=== PATIENT | male | born 1965 | race African-American/Black ===

== ENCOUNTER 2018-04-20 14:37 | Observation (INO) | payer BC ==
[2018-04-20] MEDS ORDERED: NORMAL SALINE 1000 ML 1,000 ML IV ONE ×3 (15:19→20:35)
--- NOTE | 2018-04-20 15:22 | ER Document Report ---
ED General - General Chief Complaint: Pain All Over Stated Complaint: LEG PAIN Time Seen by Provider: 04/20/18 15:04 Mode of Arrival: Ambulatory Information source: Patient Notes: Patient states that he had been living with his sister and that they had an argument and a falling out. Patient states that he moved into a hotel 5 days ago and has not been eating and has only been drinking alcohol for the past 5 days. Patient states that normally he does not drink alcohol heavily. Patient complains of generalized body aches, headache, leg pain with nausea and vomiting 2 episodes. Patient denies any falls or head injury. Patient denies any suicidal or homicidal ideation. Patient tearful during the telling of events. Patient states that he is emotionally hurt by the interaction with his sister. TRAVEL OUTSIDE OF THE [place] IN LAST 30 DAYS: No - HPI Onset: Other - 5 days Onset/Duration: Gradual Quality of pain: Achy Pain Level: 3 Associated symptoms: Headache, Nausea, Vomiting, Other - Generalized body aches , leg pain. denies: Chest pain, Nonproductive cough, Productive cough, Fever Exacerbated by: Denies Relieved by: Denies Similar symptoms previously: No Recently seen / treated by doctor: No - Related Data Allergies/Adverse Reactions: No Known Allergies Allergy (Verified 04/20/18 14:39) Past Medical History - General Information source: Patient - Social History Smoking Status: Current Every Day Smoker Smoking Education Provided: Yes Frequency of alcohol use: Heavy Drug Abuse: None Occupation: [employer] Lives with: Other - hotel Family History: None - Past Medical History Cardiac Medical History: Reports: Hx Hypertension Surgical Hx: Negative - Immunizations Immunizations up to date: Yes Hx Diphtheria, Pertussis, Tetanus Vaccination: Yes - unknown Review of Systems - Review of Systems Constitutional: No symptoms reported. denies: Fever, Recent illness EENT: No symptoms reported Cardiovascular: No symptoms reported. denies: Chest pain Respiratory: No symptoms reported. denies: Cough, Short of breath Gastrointestinal: Abdominal pain, Nausea, Vomiting Genitourinary: No symptoms reported Male Genitourinary: No symptoms reported Musculoskeletal: Other - Generalized body pain Skin: No symptoms reported Hematologic/Lymphatic: No symptoms reported Neurological/Psychological: Depression, Headaches. denies: Homicidal ideation, Lost consciousness, Suicidal ideation Physical Exam - Vital signs Vitals: Temp Pulse Resp BP Pulse Ox 98.6 F 139 H 22 H 100/58 L 96 04/20/18 14:44 04/20/18 14:44 04/20/18 14:44 04/20/18 14:44 04/20/18 14:44 - General General appearance: Appears well, Alert In distress: None - HEENT Head: Normocephalic, Atraumatic Eyes: Normal Conjunctiva: Normal Nasal: Normal Mouth/Lips: Normal Mucous membranes: Normal Pharynx: Normal Neck: Normal, Supple. No: Lymphadenopathy - Respiratory Respiratory status: No respiratory distress Chest status: Nontender Breath sounds: Normal. No: Rales, Rhonchi, Stridor, Wheezing Chest palpation: Normal - Cardiovascular Rhythm: Tachycardia Heart sounds: S1 appreciated, S2 appreciated Murmur: No - Abdominal Inspection: Normal Distension: No distension Bowel sounds: Normal Tenderness: Tender - Generalized tenderness. No: Guarding - Back Back: Normal, Nontender. No: CVA tenderness, Vertebra tenderness - Extremities General upper extremity: Normal inspection, Tender - Diffuse tenderness, no focal area tenderness, Normal ROM General lower extremity: Normal inspection, Tender - Diffuse tenderness, no focal area tenderness, Normal ROM Knee: Tender - bilat knee tenderness. Normal skin color and temperature overlying joints., Patellar tendon intact. No: Deformity, Dislocation, Instability, Joint effusion, Laxity with valgus stress, Laxity with varus stress , Unable to bear weight Calf: Normal, Nontender Ankle: Normal, Nontender Foot: Normal, Nontender - Neurological Neuro grossly intact: Yes Cognition: Normal Leigh Coma Scale Eye Opening: Spontaneous Leigh Coma Scale Verbal: Oriented [place] Coma Scale Motor: Obeys Commands [place] Coma Scale Total: 15 - Psychological Associated symptoms: Depressed, Tearful - Skin Skin Temperature: Warm Skin Moisture: Dry Skin Color: Normal Course - Re-evaluation Re-evalutation: 04/20/18 17:[address] jeronimo regarding patient presentation and diagnostic evaluation. Recommends adding on alcohol, CK, and VBG testing 04/20/18 18:39 Patient reports that generalized body aches have improved and headache pain is improved. Patient complains of continued lower abdominal pain at this time. Patient heart rate 100-110s on monitor. 04/20/18 18:41 Dr. Roberts gave patient outpatient resources information for mental health as well as detox. Patient does not meet IVC criteria. - Vital Signs Vital signs: Temp Pulse Resp BP Pulse Ox 98.6 F 139 H 18 113/61 100 04/20/18 14:44 04/20/18 14:44 04/20/18 17:00 04/20/18 17:00 04/20/18 17:00 - Laboratory Result Diagrams: 04/20/18 15:35 04/20/18 15:35 Laboratory results interpreted by me: 04/20/18 04/20/18 04/20/18 15:35 15:35 15:35 RBC 3.93 L MCV 102 H MCH 34.8 H VBG pH VBG pCO2 VBG HCO3 Potassium 5.3 H Carbon Dioxide 11 L Anion Gap 32 H BUN 34 H Creatinine 1.82 H Est GFR ( Amer) 48 L Est GFR (Non-Af Amer) 39 L Glucose 44 L Direct Bilirubin 0.8 H AST 235 H ALT 75 H Creatine Kinase 389 H Urine Protein Urine Ketones Urine Blood Urine Urobilinogen 04/20/18 04/20/18 17:42 18:12 RBC MCV MCH VBG pH 7.25 L VBG pCO2 33.0 L VBG HCO3 14.2 L Potassium Carbon Dioxide Anion Gap BUN Creatinine Est GFR ( Amer) Est GFR (Non-Af Amer) Glucose Direct Bilirubin AST ALT Creatine Kinase Urine Protein 30 H Urine Ketones 20 H Urine Blood SMALL H Urine Urobilinogen 2.0 H Discharge - Discharge Clinical Impression: Stress due to family tension, Metabolic acidosis Abdominal pain Qualifiers: Abdominal location: unspecified location Qualified Code(s): R10.9 - Unspecified abdominal pain Alcohol intoxication Qualifiers: Complication of substance-induced condition: with unspecified complication Qualified Code(s): F10.929 - Alcohol use, unspecified with intoxication, unspecified Instructions: Abdominal Pain ([facility]), Depression ([facility]), Acute Alcohol Intoxication ([facility]), Numbness or Paresthesia ([facility]) Additional Instructions: Return immediately for any new or worsening symptoms Followup with your primary care provider, call tomorrow to make a followup appointment Avoid drinking any alcohol Follow-up with mental health provider Prescriptions: Omeprazole Magnesium [Prilosec Otc] 20 mg PO DAILY #15 tablet. Sucralfate [Carafate 1 gm Tablet] 1 gm PO ACHS #40 tablet Forms: Smoking Cessation Education Referrals: GRAYSON ANGEL MD [Primary Care Provider] - Follow up as needed [facility] [Provider Group] - Follow up as needed
[2018-04-20] MEDS ORDERED: KETOROLAC TROMETHAMINE INJ/PF 30 MG/1 ML SDV IV ONE (15:50)
[2018-04-20 16:06] LABS: ABSOLUTE BASOPHILS # (AUTO) 0.1 10^3/uL (0.0-0.2); ABSOLUTE LYMPHOCYTES (AUTO) 1.4 10^3/uL (0.5-4.7); ABSOLUTE MONOCYTES (AUTO) 0.6 10^3/uL (0.1-1.4); ABSOLUTE NEUT (AUTO) 3.3 10^3/uL (1.7-8.2); BASOPHILS % (AUTO) 1.1 % (0-2); EOSINOPHILS % (AUTO) 0.8 % (0-6); HEMOGLOBIN 13.7 g/dL (13.5-17.0); LYMPHOCYTES % (AUTO) 25.7 % (13-45); MEAN CORPUSCULAR HEMOGLOBIN 34.8 pg (27.0-33.4); MEAN CORPUSCULAR HGB CONC 34.2 g/dL (32.0-36.0); MEAN CORPUSCULAR VOLUME 102 fl (80-97); MONOCYTES % (AUTO) 10.8 % (3-13); PLATELET COUNT 162 10^3/uL (150-450); RED BLOOD COUNT 3.93 10^6/uL (4.35-5.55); RED CELL DISTRIBUTION WIDTH 13.9 % (11.5-14.0); SEGMENTED NEUTROPHILS % (AUTO) 61.6 % (42-78); TOTAL CELLS COUNTED % (AUTO) 100 %; WHITE BLOOD COUNT 5.4 10^3/uL (4.0-10.5)
[2018-04-20 16:25] LABS: ALANINE AMINOTRANSFERASE 75 U/L (21-72); ALBUMIN 4.8 g/dL (3.5-5.0); ALKALINE PHOSPHATASE 86 U/L (38-126); ASPARTATE AMINO TRANSFERASE 235 U/L (17-59); BILIRUBIN,DIRECT 0.8 mg/dL (0.0-0.4); BLOOD UREA NITROGEN 34 mg/dL (7-20); CALCIUM 9.2 mg/dL (8.4-10.2); GLUCOSE 44 mg/dL (75-110); LIPASE 158.6 U/L (23-300); POTASSIUM 5.3 mmol/L (3.6-5.0); TOTAL PROTEIN 7.8 g/dL (6.3-8.2)
[2018-04-20 16:30] LABS: CARBON DIOXIDE 11 mmol/L (22-30); CHLORIDE 100 mmol/L (98-107); SODIUM 142.5 mmol/L (137-145)
[2018-04-20 16:34] LABS: ANION GAP 32 (5-19)
[2018-04-20] MEDS ORDERED: NORMAL SALINE 1000 ML 1,000 ML IV PRN (17:12)
[2018-04-20 17:54] LABS: ALCOHOL 287 mg/dL (NONE DETECTED); CREATINE KINASE 389 U/L (55-170)
[2018-04-20 18:19] LABS: APPEARANCE,URINE CLEAR; BILIRUBIN,URINE NEGATIVE (NEGATIVE); COLOR,URINE YELLOW; GLUCOSE, URINE NEGATIVE (NEGATIVE); KETONES,URINE 20 mg/dL (NEGATIVE); LEUKOCYTE ESTERASE,URINE NEGATIVE (NEGATIVE); NITRITE,URINE NEGATIVE (NEGATIVE); PROTEIN,URINE 30 mg/dL (NEGATIVE); URINE SPECIFIC GRAVITY 1.015
[2018-04-20 18:47] LABS: VENOUS BLOOD BASE EXCESS -11.8 mmol/L; VENOUS BLOOD HCO3 14.2 mmol/L (20-32); VENOUS BLOOD PH 7.25 (7.30-7.42)
--- NOTE | 2018-04-20 19:25 | RADIOLOGY REPORT (SQ) ---
EXAM DESCRIPTION: CT ABD/PELVIS NO ORAL OR IV COMPLETED DATE/TIME: 04/20/2018 7:05 pm REASON FOR STUDY: lower abd pain COMPARISON: None. TECHNIQUE: CT scan of the abdomen and pelvis performed without intravenous or oral contrast. Images reviewed with lung, soft tissue, and bone windows. Reconstructed coronal and sagittal MPR images revi ewed. All images stored on PACS. All CT scanners at this facility use dose modulation, iterative reconstruction, and/or weight based d osing when appropriate to reduce radiation dose to as low as reasonably achievable (ALARA). [facility]: Dose Right [facility]: CareDose [facility]: Dose Right [facility]: Teradose 4D [facility]: Smart [employer] RADIATION DOSE: CT Rad equipment meets quality standard of care and radiation dose reduction techniq ues were employed. CTDIvol: 5.5 mGy. DLP: 298 mGy-cm.mGy. LIMITATIONS: None. FINDINGS: LOWER CHEST: No consolidation or pleural effusion. NON-CONTRASTED LIVER, SPLEEN, ADRENALS: Evaluation limited by lack of IV contrast. No identified sign ificant masses. There is diffuse decreased attenuation of the liver, most consistent with fatty infi ltration. PANCREAS: No peripancreatic inflammatory changes. GALLBLADDER: There is cholelithiasis. RIGHT KIDNEY AND URETER: Assessment for masses limited by lack of IV contrast. No significant calci fications. No hydronephrosis or hydroureter. LEFT KIDNEY AND URETER: Assessment for masses limited by lack of IV contrast. No significant calcif ications. No hydronephrosis or hydroureter. AORTA AND RETROPERITONEUM: Atherosclerotic calcifications at the abdominal aorta and its branches. N o abdominal aortic aneurysm. No retroperitoneal masses or hemorrhage. BOWEL AND PERITONEAL CAVITY: No dilated bowel loops to suggest obstruction. No focal inflammatory ch anges. No free fluid or free air. APPENDIX: Normal. PELVIS, BLADDER, AND ABDOMINAL WALL:The urinary bladder is partially distended. No pelvic mass. No free fluid. BONES: Mild multilevel degenerative changes at the spine. IMPRESSION: 1. No urinary tract calculi or hydronephrosis. 2. Fatty infiltration of the liver. 3. Cholelithiasis. COMMENT: Quality ID # [id number]: Final reports with documentation of one or more dose reduction techniques (e.g., Automated exposure control, adjustment of the mA and/or kV according to patient size, use of iterative reconstruction technique) TECHNICAL DOCUMENTATION: JOB ID: [id number] 2010 [facility]- All Rights Reserved Reading location - IP/workstation name: [email or web address]
[2018-04-20 19:45] LABS: BLOOD UREA NITROGEN 28 mg/dL (7-20); CALCIUM 8.5 mg/dL (8.4-10.2); CHLORIDE 104 mmol/L (98-107); GLUCOSE 77 mg/dL (75-110); POTASSIUM 4.9 mmol/L (3.6-5.0)
[2018-04-20 19:51] LABS: CARBON DIOXIDE 18 mmol/L (22-30); SODIUM 142.4 mmol/L (137-145)
[2018-04-20 20:09] LABS: ANION GAP 20 (5-19)
[2018-04-20 20:36] LABS: ALANINE AMINOTRANSFERASE 68 U/L (21-72); ALBUMIN 4.1 g/dL (3.5-5.0); ALKALINE PHOSPHATASE 76 U/L (38-126); ASPARTATE AMINO TRANSFERASE 218 U/L (17-59); BILIRUBIN,DIRECT 0.6 mg/dL (0.0-0.4); BILIRUBIN,TOTAL 0.7 mg/dL (0.2-1.3); TOTAL PROTEIN 6.9 g/dL (6.3-8.2)
--- NOTE | 2018-04-20 22:08 | EKG REPORT ---
SEVERITY:- OTHERWISE NORMAL ECG - SINUS TACHYCARDIA : Confirmed by: Papito Merida 20-Apr-2018 22:07:28
[2018-04-20 22:48] LABS: VENOUS BLOOD BASE EXCESS -9.5 mmol/L; VENOUS BLOOD HCO3 16.2 mmol/L (20-32); VENOUS BLOOD PCO2 34.9 mmHg (35-63); VENOUS BLOOD PH 7.28 (7.30-7.42)
[2018-04-20] MEDS ORDERED: DEXTROSE 5%-1/2 NORMAL SALINE 1,000 ML IV PRN (23:44)
[2018-04-21] MEDS ORDERED: PROMETHAZINE HCL INJ 25 MG/1 ML VIAL IV PRN (01:04)
[2018-04-21] MEDS ORDERED: MAG HYDROX/AL HYDROX/SIMETH SUSP 30 ML UDCUP PO PRN (01:04)
[2018-04-21] MEDS ORDERED: RINGERS SOLUTION,LACTATED 1,000 ML IV PRN ×2 (01:04→07:48)
[2018-04-21] MEDS ORDERED: TEMAZEPAM 7.5 MG CAPSULE PO ONE (01:30)
[2018-04-21] MEDS ORDERED: OXYCODONE-ACETAMINOPHEN 5-325 MG TABLET PO PRN (04:00)
--- NOTE | 2018-04-21 04:20 | PDOC H&P ---
History of Present Illness Admission Date/PCP: 04/21/18 00:30 GRAYSON ANGEL MD Patient complains of: Generalized weakness History of Present Illness: LAUREN KATE is a 53 year old male since last that he had a family problem. He has been drinking on a daily basis since then, he has not been drinking fluids or eating for the last 5 days. She started feeling generalized weakness, generalized muscular soreness. Nausea and vomiting here fluids. Denies shortness of breath, wheezing, chest pain, abdominal pain, urinary symptoms. In the emergency department found tachycardic, chemistry came back with acidosis , ABG sent 7.25/[id number]. Given IV fluids, pH improved to 7.28 and bicarb 18. Anion gap improved from 32-20. Patient was found also with acute kidney injury. Patient was in the emergency department for several hours, it was felt the patient needs to be admitted until his acidosis improved. CT abdomen unremarkable. Past Medical History Cardiac Medical History: Reports: Hypertension Past Surgical History Past Surgical History: Reports: None Social History Lives with: Other - hotel Smoking Status: Current Every Day Smoker - Pack of cigarettes last for 2 days Frequency of Alcohol Use: Heavy - For the last week has been drinking 1 pint of vodka and beer per day Drugs: None Family History Family History: None Parental Family History Reviewed: Yes - Mom dies at 50 with brain aneurysm. Father at 45 with CVA Children Family History Reviewed: NA Sibling(s) Family History Reviewed.: NA Medication/Allergy Home Medications: Indomethacin [Indocin 25 Mg Capsule] 25 mg PO TID #15 capsule 03/16/15 Oxycodone HCl/Acetaminophen [Percocet 5-325 mg Tablet] 1 - 2 tab PO ASDIR PRN # 25 tablet 03/16/15 Indomethacin [Indocin 50 mg Capsule] 50 mg PO TID #30 capsule 03/21/15 Oxycodone HCl/Acetaminophen [Percocet 5-325 mg Tablet] 1 - 2 tab PO ASDIR PRN # 15 tablet 03/21/15 Amlodipine Besylate [Amlodipine Besylate] 5 mg PO DAILY 04/21/18 Valsartan [Valsartan] 160 mg PO DAILY 04/21/18 Allergies/Adverse Reactions: No Known Allergies Allergy (Verified 04/20/18 14:39) Review of Systems Review of Systems: As outlined in the HPI, all others negative Physical Exam Vital Signs: Temp Pulse Resp BP Pulse Ox 98.6 F 105 H 24 H 150/91 H 100 04/21/18 01:00 04/21/18 02:46 04/21/18 01:01 04/21/18 01:00 04/21/18 01:01 Additional comments: General appearance: Well-developed, well-nourished, alert and cooperative, and appears to be in no acute distress Head: Normocephalic Eyes: PEERL, EOMI, vision is grossly intact. Ears: External auditory canal and tympanic membranes clear, hearing grossly intact. Nose: No nasal discharge. Throat: Oral cavity and pharynx normal. No inflammation, swelling, exudate or lesions. Neck: Neck supple, nontender without lymphadenopathy, masses or thyromegaly. Cardiac: Normal S1 and S2. No S3, S4 or murmurs. Rhythm is regular. There is no peripheral edema, cyanosis or pallor. Extremities are warm and well perfused. Capillary refill is less than 2 seconds. No carotid bruits. Lungs: Clear to auscultation and percussion without rales, rhonchi, wheezing or diminished breath sounds. Not using accessory muscles. Abdomen: Positive bowel sounds. Soft. Nondistended, nontender. No guarding or rebound. No masses. No hepatosplenomegaly Extremities: No significant deformity or joint abnormality. No edema. Peripheral pulses intact. No varicosities. Neurological: Cranial nerves II through XII grossly intact. Strength and sensation symmetric and intact throughout. Reflexes 2+ throughout. Skin: Skin normal color, texture and turgor with no lesions or eruptions, warm and dry. Psychiatric: The mental examination revealed the patient was oriented to person , place, and time. The patient was able to demonstrate good judgment on recent , without hallucinations, abnormal affect or abnormal behaviors. Results Laboratory Results: 04/20/18 04/20/18 04/20/18 15:35 15:35 15:35 WBC 5.4 Hgb 13.7 Hct 40.0 Plt Count 162 VBG pH VBG pCO2 VBG HCO3 Sodium 142.5 Potassium 5.3 H Chloride 100 Carbon Dioxide 11 L Anion Gap 32 H BUN 34 H Creatinine 1.82 H Est GFR ( Amer) 48 L Est GFR (Non-Af Amer) 39 L Glucose 44 L Calcium 9.2 Magnesium 1.9 Direct Bilirubin 0.8 H AST 235 H ALT 75 H Alkaline Phosphatase 86 Creatine Kinase 389 H Total Protein 7.8 Albumin 4.8 Lipase 158.6 Serum Alcohol 287 04/20/18 04/20/18 04/20/18 18:12 19:13 19:13 WBC Hgb Hct Plt Count VBG pH 7.25 L VBG pCO2 33.0 L VBG HCO3 14.2 L Sodium Potassium 4.9 Chloride Carbon Dioxide 18 L Anion Gap 20 H BUN 28 H Creatinine 1.40 H Est GFR ( Amer) > 60 Est GFR (Non-Af Amer) Glucose Calcium Magnesium Direct Bilirubin AST 218 H ALT 68 Alkaline Phosphatase Creatine Kinase Total Protein Albumin Lipase Serum Alcohol 04/20/18 22:29 WBC Hgb Hct Plt Count VBG pH 7.28 L VBG pCO2 34.9 L VBG HCO3 16.2 L Sodium Potassium Chloride Carbon Dioxide Anion Gap BUN Creatinine Est GFR ( Amer) Est GFR (Non-Af Amer) Glucose Calcium Magnesium Direct Bilirubin AST ALT Alkaline Phosphatase Creatine Kinase Total Protein Albumin Lipase Serum Alcohol Impressions: Abdomen/Pelvis CT 04/20/18 18:40 IMPRESSION: 1. No urinary tract calculi or hydronephrosis. 2. Fatty infiltration of the liver. 3. Cholelithiasis. Assessment & Plan - Diagnosis (1) Metabolic acidosis Is this a current diagnosis for this admission?: Yes Plan: Comes with severe dehydration, found in the ED with metabolic acidosis that did not resolved with IV fluids in the ED. Was given normal saline and D5 water. I will go ahead and switch the patient to Ringer lactate as is less acidic than the prior two. We will repeat the ABG in the morning. Bicarbonate has been improving from 14 on admission to 16 repeated one, and pH improved from 7.25- 7.28. (2) Alcohol intoxication Qualifiers: Complication of substance-induced condition: with unspecified complication Qualified Code(s): F10.929 - Alcohol use, unspecified with intoxication, unspecified Is this a current diagnosis for this admission?: Yes Plan: Acute alcohol intoxication this patient has been drinking since last every day secondary to family conflicts. As I said before I will give gently IV fluids. I placed an order for banana bag, multivitamins, folic acid, thiamine. Will place the patient on lorazepam 2 mg IV as needed for alcohol withdrawal while symptoms. (3) Stress due to family tension Is this a current diagnosis for this admission?: Yes Plan: Psychiatric consultation has been placed for Dr. Matthews (4) Rhabdomyolysis Is this a current diagnosis for this admission?: Yes Plan: CK 389, plenty of fluid is given to the patient. We will repeat CK in the morning. (5) Acute renal failure Qualifiers: Acute renal failure type: unspecified Qualified Code(s): N17.9 - Acute kidney failure, unspecified Is this a current diagnosis for this admission?: Yes Plan: Initial BUN 34 and creatinine 1.8, after IV fluids BUN 28 and creatinine 1.4, suspected prerenal secondary to severe dehydration. We will give the patient on IV fluids and reassess renal function in the morning. Valsartram on hold. Avoid nephrotoxic drugs. - Time Time Spent: 30 to 50 Minutes - Inpatient Certification Based on my medical assessment, after consideration of the patient's comorbidities, presenting symptoms, or acuity I expect that the services needed warrant INPATIENT care.: Yes I certify that my determination is in accordance with my understanding of Medicare's requirements for reasonable and necessary INPATIENT services [42 CFR 412.3e].: Yes Medical Necessity: Need For IV Fluids
[2018-04-21] MEDS ORDERED: LORAZEPAM INJ 2 MG/1 ML VIAL IV PRN (04:23)
[2018-04-21 05:43] LABS: ABSOLUTE BASOPHILS # (AUTO) 0.1 10^3/uL (0.0-0.2); ABSOLUTE EOSINOPHILS # (AUTO) 0.1 10^3/uL (0.0-0.6); ABSOLUTE LYMPHOCYTES (AUTO) 1.3 10^3/uL (0.5-4.7); ABSOLUTE MONOCYTES (AUTO) 0.4 10^3/uL (0.1-1.4); ABSOLUTE NEUT (AUTO) 3.3 10^3/uL (1.7-8.2); EOSINOPHILS % (AUTO) 2.2 % (0-6); HEMATOCRIT 35.5 % (37.9-51.0); HEMOGLOBIN 12.3 g/dL (13.5-17.0); LYMPHOCYTES % (AUTO) 24.6 % (13-45); MEAN CORPUSCULAR HEMOGLOBIN 35.1 pg (27.0-33.4); MEAN CORPUSCULAR HGB CONC 34.7 g/dL (32.0-36.0); MEAN CORPUSCULAR VOLUME 101 fl (80-97); MONOCYTES % (AUTO) 8.5 % (3-13); PLATELET COUNT 111 10^3/uL (150-450); RED BLOOD COUNT 3.51 10^6/uL (4.35-5.55); RED CELL DISTRIBUTION WIDTH 13.7 % (11.5-14.0); SEGMENTED NEUTROPHILS % (AUTO) 63.7 % (42-78); TOTAL CELLS COUNTED % (AUTO) 100 %; WHITE BLOOD COUNT 5.3 10^3/uL (4.0-10.5)
[2018-04-21] MEDS: HEPARIN SOD (PORCINE) 5,000 UNIT/ML 1 ML SYRINGE SUBCUT SCH ×4 (05:44→21:20)
[2018-04-21 06:08] LABS: ALANINE AMINOTRANSFERASE 76 U/L (21-72); ALBUMIN 3.8 g/dL (3.5-5.0); ALKALINE PHOSPHATASE 77 U/L (38-126); ANION GAP 19 (5-19); ASPARTATE AMINO TRANSFERASE 234 U/L (17-59); BILIRUBIN,DIRECT 0.7 mg/dL (0.0-0.4); BILIRUBIN,TOTAL 1.1 mg/dL (0.2-1.3); BLOOD UREA NITROGEN 18 mg/dL (7-20); CALCIUM 8.3 mg/dL (8.4-10.2); CARBON DIOXIDE 15 mmol/L (22-30); CHLORIDE 106 mmol/L (98-107); CREATINE KINASE 507 U/L (55-170); GLUCOSE 54 mg/dL (75-110); PHOSPHORUS 2.6 mg/dL (2.5-4.5); POTASSIUM 4.9 mmol/L (3.6-5.0); SODIUM 140.4 mmol/L (137-145); TOTAL PROTEIN 6.7 g/dL (6.3-8.2)
[2018-04-21 06:56] LABS: ARTERIAL BLOOD BASE EXCESS -6.1 mmol/L; ARTERIAL BLOOD H2CO3 1.07 mmol/L (1.05-1.35); ARTERIAL BLOOD HCO3 18.8 mmol/L (20-26); ARTERIAL BLOOD O2 SATURATION 94.8 % (94-98); ARTERIAL BLOOD PCO2 35.5 mmHg (35-45); ARTERIAL BLOOD PH 7.34 (7.35-7.45); ARTERIAL BLOOD TOTAL CO2 19.9 mmol/L (23-27)
[2018-04-21 06:58] LABS: ARTERIAL BLOOD FIO2 ROOM AIR
[2018-04-21] MEDS: MULTIVITAMIN TABLET PO SCH (10:51)
[2018-04-21] MEDS: AMLODIPINE BESYLATE 5 MG TABLET PO SCH (10:51)
[2018-04-21] MEDS: THIAMINE HCL 100 MG TABLET PO SCH (10:51)
[2018-04-21] MEDS: FOLIC ACID 1 MG TABLET PO SCH (10:52)
[2018-04-21] MEDS: MAGNESIUM SULFATE/D5W 1 GM/100 ML RTUPB IV SCH ×3 (13:48→18:30)
[2018-04-21] MEDS ORDERED: DIAZEPAM 5 MG TABLET PO PRN (17:14)
[2018-04-21] MEDS ORDERED: DIAZEPAM 2 MG TABLET PO PRN (17:25)
--- NOTE | 2018-04-21 17:29 | Progress Note ---
Provider Note Provider Note: The patient is a 53-year-old male with a past medical history significant for hypertension, alcohol abuse with continuous use, and tobacco abuse with continuous use who was admitted overnight 04/21/18 for metabolic acidosis secondary to alcohol intoxication. The patient was briefly seen, overnight events, vital signs, laboratory results , and orders were reviewed. 1) Metabolic acidosis: Improved; anion gap is closed, however bicarb continues to be low. We will continue IV fluids. 2) Alcohol intoxication: On admission, serum alcohol was found to be 287. The patient reports that he generally drinks 1-2 beers daily but has been binge drinking for the last 4 days. He denies previous history of alcohol withdrawal or seizures. The patient remains hypertensive and becomes tachycardic with minimal activity to heart rate in the 140s. Will place him on scheduled Valium 2 mg every 6 hours and continue IV Ativan as needed for withdrawal symptoms. 3) Acute renal failure: Resolved with IV fluids. 4) stress due to family tension resulting in binge drinking. Psychiatry has been consulted. 5) Rhabdomyolysis: Although CK has trended up slightly to 500, he remains less than the threshold for rhabdomyolysis. Continue to provide IV fluids. 6) Tobacco abuse: smoking cessation is encouraged, nicotine replacement therapies are provided 7) persistent tachycardia: Likely secondary to #2. TSH is normal. We will continue IV fluids. Continue continues to cardiac telemetry. 8) elevated LFTs: Secondary to #1 and 2. Plan as above.
[2018-04-21] MEDS ORDERED: TEMAZEPAM 7.5 MG CAPSULE PO SCH (22:00)
[2018-04-22] MEDS: RINGERS SOLUTION,LACTATED 1,000 ML IV PRN ×2 (06:16→16:32)
[2018-04-22 06:41] LABS: HEMATOCRIT 38.5 % (37.9-51.0); HEMOGLOBIN 13.5 g/dL (13.5-17.0); MEAN CORPUSCULAR HEMOGLOBIN 34.6 pg (27.0-33.4); MEAN CORPUSCULAR VOLUME 99 fl (80-97); PLATELET COUNT 112 10^3/uL (150-450); RED BLOOD COUNT 3.89 10^6/uL (4.35-5.55); RED CELL DISTRIBUTION WIDTH 13.4 % (11.5-14.0); WHITE BLOOD COUNT 4.8 10^3/uL (4.0-10.5)
[2018-04-22 07:13] LABS: ALANINE AMINOTRANSFERASE 98 U/L (21-72); ALKALINE PHOSPHATASE 96 U/L (38-126); ANION GAP 12 (5-19); ASPARTATE AMINO TRANSFERASE 299 U/L (17-59); BILIRUBIN,DIRECT 0.5 mg/dL (0.0-0.4); BILIRUBIN,TOTAL 1.1 mg/dL (0.2-1.3); BLOOD UREA NITROGEN 10 mg/dL (7-20); CALCIUM 9.3 mg/dL (8.4-10.2); CARBON DIOXIDE 28 mmol/L (22-30); CHLORIDE 99 mmol/L (98-107); CREATINE KINASE 425 U/L (55-170); GLUCOSE 117 mg/dL (75-110); POTASSIUM 3.9 mmol/L (3.6-5.0); SODIUM 138.5 mmol/L (137-145); TOTAL PROTEIN 7.1 g/dL (6.3-8.2)
[2018-04-22] MEDS: LORAZEPAM INJ 2 MG/1 ML VIAL IV PRN ×2 (08:53→12:54)
[2018-04-22] MEDS: THIAMINE HCL 100 MG TABLET PO SCH (09:00)
[2018-04-22] MEDS: AMLODIPINE BESYLATE 5 MG TABLET PO SCH (09:01)
[2018-04-22] MEDS: MULTIVITAMIN TABLET PO SCH (09:01)
[2018-04-22] MEDS: FOLIC ACID 1 MG TABLET PO SCH (09:01)
[2018-04-22] MEDS: HEPARIN SOD (PORCINE) 5,000 UNIT/ML 1 ML SYRINGE SUBCUT SCH (14:45)
[2018-04-22 16:23] VITALS: BP 130/92
--- NOTE | 2018-04-22 17:53 | PDOC PROGRESS REPORT ---
Subjective Progress Note for:: 04/22/18 Subjective:: The patient is a 53-year-old male with a past medical history significant for hypertension, alcohol abuse with continuous use, and tobacco abuse with continuous use who was admitted 04/21/18 for metabolic acidosis secondary to alcohol intoxication. The patient is seen on afternoon rounds. He is found sitting upright to the edge of the bed comfortably on room air. He is noted to be impulsive, with poor safety awareness, and instability. He has defecated on the floor. He is also asking to be discharged home. He denies dizziness, headaches, chest pain, palpitations, dyspnea, abdominal pain, nausea, and vomiting. Per nursing, the patient continues to have hypertensive episodes and runs of sinus tach with a heart rate in the 140s-150s that resolve rapidly following administration of his as needed Ativan. Reason For Visit: METABOLIC ACIDOSIS Physical Exam Vital Signs: Temp Pulse Resp BP Pulse Ox 98.8 F 117 H 18 130/92 H 100 04/22/18 15:39 04/22/18 15:39 04/22/18 15:39 04/22/18 15:39 04/22/18 15:39 Intake & Output 04/21/18 04/22/18 04/23/18 06:59 06:59 06:59 Intake Total 2700 445 Output Total 750 Balance 2700 -305 Weight 67.6 kg 72.1 kg General appearance: PRESENT: no acute distress, disheveled, well-developed, well -nourished, other - Overweight Head exam: PRESENT: atraumatic, normocephalic Eye exam: PRESENT: conjunctiva pink, EOMI, PERRLA. ABSENT: scleral icterus Ear exam: PRESENT: normal external ear exam Mouth exam: PRESENT: moist, tongue midline Neck exam: ABSENT: carotid bruit, JVD, lymphadenopathy, thyromegaly Respiratory exam: PRESENT: clear to auscultation rocio, symmetrical, unlabored. ABSENT: rales, rhonchi, wheezes Cardiovascular exam: PRESENT: RRR, tachycardia. ABSENT: diastolic murmur, rubs , systolic murmur Pulses: PRESENT: normal dorsalis pedis pul Vascular exam: PRESENT: normal capillary refill GI/Abdominal exam: PRESENT: normal bowel sounds, soft. ABSENT: distended, guarding, mass, organolmegaly, rebound, tenderness Rectal exam: PRESENT: deferred Extremities exam: PRESENT: full ROM. ABSENT: calf tenderness, clubbing, pedal edema Musculoskeletal exam: PRESENT: other - Unstable gait Neurological exam: PRESENT: alert, awake, oriented to person, oriented to place , oriented to time, oriented to situation, CN II-XII grossly intact, other - Poor impulse control, poor safety awareness. ABSENT: motor sensory deficit Psychiatric exam: PRESENT: agitated, appropriate affect. ABSENT: homicidal ideation, suicidal ideation Skin exam: PRESENT: dry, intact, warm. ABSENT: cyanosis, rash Results Laboratory Results: 04/22/18 05:58 04/22/18 05:58 04/22/18 04/22/18 05:58 05:58 WBC 4.8 RBC 3.89 L Hgb 13.5 Hct 38.5 MCV 99 H MCH 34.6 H MCHC 35.0 RDW 13.4 Plt Count 112 L Sodium 138.5 Potassium 3.9 Chloride 99 Carbon Dioxide 28 Anion Gap 12 BUN 10 Creatinine 0.87 Est GFR ( Amer) > 60 Est GFR (Non-Af Amer) > 60 Glucose 117 H Calcium 9.3 Total Bilirubin 1.1 AST 299 H ALT 98 H Alkaline Phosphatase 96 Total Protein 7.1 Albumin 4.0 04/21/18 04/22/18 05:01 05:58 Creatine Kinase 507 H 425 H Impressions: Abdomen/Pelvis CT 04/20/18 18:40 IMPRESSION: 1. No urinary tract calculi or hydronephrosis. 2. Fatty infiltration of the liver. 3. Cholelithiasis. Assessment & Plan - Diagnosis (1) Metabolic acidosis Is this a current diagnosis for this admission?: Yes Plan: Resolved. (2) Alcohol withdrawal Is this a current diagnosis for this admission?: Yes Plan: The patient reports that he generally drinks 1-2 beers daily but has been binge drinking for the last 4 days. He denies previous history of alcohol withdrawal or seizures. The patient is asked again today about his drinking habits; he maintains that the only reason he is having difficulty withdrawal at this time is because he was binging for the previous 4 days. He reports that he rarely drinks more than 1 beer nightly. The patient continues to have labile blood pressures and becomes tachycardic with minimal activity with heart rates 140s-150s. He is also noted to have increased impulsivity, unstable gait, and poor safety awareness today. He is clearly incontinent of stools this time. We will increase his scheduled Valium to 5 mg every 6 hours due to likelihood the patient drinks much more than he has indicated. We will continue IV Ativan as needed for withdrawal symptoms. Discharge planning has been consulted. Fall, seizure, aspiration precautions are in place. Recommend bed alarm versus sitter due to poor safety awareness and high fall risk. (3) Acute renal failure Qualifiers: Acute renal failure type: unspecified Qualified Code(s): N17.9 - Acute kidney failure, unspecified Is this a current diagnosis for this admission?: Yes Plan: Resolved. (4) Stress due to family tension Is this a current diagnosis for this admission?: Yes Plan: Psychiatry has been consulted; At this time the patient has not yet been evaluated. (5) Rhabdomyolysis Is this a current diagnosis for this admission?: Yes Plan: Ruled out. Although CK has trended up slightly to 500, he remains less than the threshold for rhabdomyolysis. Now trending down. Continue to provide IV fluids. (6) Continuous tobacco abuse Is this a current diagnosis for this admission?: Yes Plan: Smoking cessation is encouraged; nicotine replacement therapies are provided. (7) Elevated LFTs Is this a current diagnosis for this admission?: Yes Plan: Secondary to alcohol abuse. CT of the abdomen and pelvis was negative for urinary tract calculi or hydronephrosis, did demonstrate fatty infiltration of the liver, and cholelithiasis. Continue supportive therapy. Will check ammonia with a.m. labs. (8) Tachycardia Is this a current diagnosis for this admission?: Yes Plan: Secondary to alcohol withdrawal. TSH is normal We will continue IV fluids. We will continue to monitor with cardiac telemetry. (9) Alcohol intoxication Qualifiers: Complication of substance-induced condition: with unspecified complication Qualified Code(s): F10.929 - Alcohol use, unspecified with intoxication, unspecified Is this a current diagnosis for this admission?: Yes Plan: On admission, serum alcohol was found to be 287. - Time Time Spent with patient: 35 or more minutes Smoking Cessation Education: 3 to 10 minutes Medications reviewed and adjusted accordingly: Yes Anticipated discharge: Home - Inpatient Certification Based on my medical assessment, after consideration of the patient's comorbidities, presenting symptoms, or acuity I expect that the services needed warrant INPATIENT care.: Yes I certify that my determination is in accordance with my understanding of Medicare's requirements for reasonable and necessary INPATIENT services [42 CFR 412.3e].: Yes Medical Necessity: Need Close Monitoring Due to Risk of Patient Decompensation, Need For IV Fluids
[2018-04-22] MEDS ORDERED: DIAZEPAM 5 MG TABLET PO SCH (18:00)
--- NOTE | 2018-04-22 23:13 | PDOC DISCHARGE SUMMARY ---
General - Admit/Disc Date/PCP Admission Date/Primary Care Provider: 04/21/18 00:30 GRAYSON ANGEL MD Discharge Date: 04/22/18 - Discharge Diagnosis (1) Metabolic acidosis Is this a current diagnosis for this admission?: Yes Summary: Secondary to acute alcohol intoxication and dehydration. Resolved following rehydration with IVF. (2) Alcohol withdrawal Is this a current diagnosis for this admission?: Yes Summary: The patient was clearly experiencing alcohol withdrawal; evidenced by intermittent tachycardia, hypertension, diaphoresis, stool incontinence, and labial mood. The patient reports that he generally drinks 1-2 beers daily but has been binge drinking for the last 4 days. He denies previous history of alcohol withdrawal or seizures. He was placed on scheduled Valium with as needed IV Ativan for anxiety, agitation, and symptoms of alcohol withdrawal. Unfortunately, the patient left AGAINST MEDICAL ADVISE while still experiencing withdrawal symptoms. (3) Acute renal failure Is this a current diagnosis for this admission?: Yes Summary: Secondary to dehydration; resolved with IVF. (4) Stress due to family tension Is this a current diagnosis for this admission?: Yes Summary: Pt related that he drinks 1-2 beers daily, but that he has been binge drinking for several days prior to admission due to family stress. Psychiatry was consulted, however, the patient left AMA prior to evaluation. (5) Elevated LFTs Is this a current diagnosis for this admission?: Yes Summary: Secondary to alcohol abuse. CT of the abdomen and pelvis was negative for urinary tract calculi or hydronephrosis, did demonstrate fatty infiltration of the liver, and cholelithiasis. Although elevated LFTs are most likely r/t alcohol abuse; however, planned to evaluate acute hepatitis panel with a.m. lab work. Unfortunately, the patient has left AMA. (6) Tachycardia Is this a current diagnosis for this admission?: Yes Summary: Secondary to EtOH withdrawal. TSH was normal. (7) Alcohol intoxication Is this a current diagnosis for this admission?: Yes Summary: On admission, serum alcohol was found to be 287. (8) Continuous tobacco abuse Is this a current diagnosis for this admission?: Yes Summary: Smoking cessation is encouraged; nicotine replacement therapies are provided. (9) Rhabdomyolysis Is this a current diagnosis for this admission?: Yes Summary: Ruled out; CK peaked at 500, less than the threshold for rhabdomyolysis. CK trended down with IVF. - Additional Information Home Medications: Amlodipine Besylate [Amlodipine Besylate] 5 mg PO DAILY 04/21/18 Loratadine [Claritin 10 mg Tablet] 10 mg PO DAILYP PRN 04/21/18 Valsartan [Valsartan] 160 mg PO DAILY 04/21/18 History of Present Illness History of Present Illness: Per H&P by Dr. Brunner: LAUREN KATE is a 53 year old male since last that he had a family problem. He has been drinking on a daily basis since then , he has not been drinking fluids or eating for the last 5 days. She started feeling generalized weakness, generalized muscular soreness. Nausea and vomiting here fluids. Denies shortness of breath, wheezing, chest pain, abdominal pain, urinary symptoms. In the emergency department found tachycardic, chemistry came back with acidosis , ABG sent 7.25/[id number]. Given IV fluids, pH improved to 7.28 and bicarb 18. Anion gap improved from 32-20. Patient was found also with acute kidney injury. Patient was in the emergency department for several hours, it was felt the patient needs to be admitted until his acidosis improved. CT abdomen unremarkable. Physical Exam Vital Signs: Temp Pulse Resp BP Pulse Ox 98.8 F 117 H 18 130/92 H 100 04/22/18 15:39 04/22/18 15:39 04/22/18 15:39 04/22/18 15:39 04/22/18 15:39 Intake & Output 04/21/18 04/22/18 04/23/18 06:59 06:59 06:59 Intake Total 2700 1745 Output Total 750 Balance 2700 995 Weight 67.6 kg 72.1 kg General appearance: PRESENT: no acute distress, disheveled, well-developed, well -nourished. ABSENT: cooperative Head exam: PRESENT: atraumatic, normocephalic Eye exam: PRESENT: conjunctiva pink, EOMI, PERRLA. ABSENT: scleral icterus Mouth exam: PRESENT: moist, tongue midline Neck exam: ABSENT: carotid bruit, JVD, lymphadenopathy, thyromegaly Respiratory exam: PRESENT: clear to auscultation rocio, symmetrical, unlabored. ABSENT: rales, rhonchi, wheezes Cardiovascular exam: PRESENT: RRR, +S1, +S2, tachycardia. ABSENT: diastolic murmur, rubs, systolic murmur Vascular exam: PRESENT: normal capillary refill GI/Abdominal exam: PRESENT: normal bowel sounds, soft. ABSENT: distended, guarding, mass, organolmegaly, rebound, tenderness Rectal exam: PRESENT: deferred, other - incontinent of formed stool Extremities exam: PRESENT: full ROM. ABSENT: calf tenderness, clubbing, pedal edema Neurological exam: PRESENT: alert, awake, oriented to person, oriented to place , oriented to time, oriented to situation, CN II-XII grossly intact. ABSENT: motor sensory deficit Psychiatric exam: PRESENT: agitated, appropriate affect. ABSENT: homicidal ideation, suicidal ideation Skin exam: PRESENT: dry, intact, warm. ABSENT: cyanosis, rash Results Laboratory Results: 04/22/18 05:58 04/22/18 05:58 04/22/18 04/22/18 05:58 05:58 WBC 4.8 RBC 3.89 L Hgb 13.5 Hct 38.5 MCV 99 H MCH 34.6 H MCHC 35.0 RDW 13.4 Plt Count 112 L Sodium 138.5 Potassium 3.9 Chloride 99 Carbon Dioxide 28 Anion Gap 12 BUN 10 Creatinine 0.87 Est GFR ( Amer) > 60 Est GFR (Non-Af Amer) > 60 Glucose 117 H Calcium 9.3 Total Bilirubin 1.1 AST 299 H ALT 98 H Alkaline Phosphatase 96 Total Protein 7.1 Albumin 4.0 04/21/18 04/22/18 05:01 05:58 Creatine Kinase 507 H 425 H Impressions: Abdomen/Pelvis CT 04/20/18 18:40 IMPRESSION: 1. No urinary tract calculi or hydronephrosis. 2. Fatty infiltration of the liver. 3. Cholelithiasis. Qualifiers - * PATIENT BEING DISCHARGED WITH ANY OF THE FOLLOWING DIAGNOSIS: No Plan Discharge Plan: The patient left AGAINST MEDICAL ADVICE.
[2018-04-23] MEDS ORDERED: VALSARTAN 160 MG TABLET PO SCH (10:00)
== END 2018-04-22 19:24 | disposition left against medical advice (07) ==
LOC: ER 14:37 → EH 04-21 00:30 → 5 04-21 02:16
PROVIDERS: ADMIT Internal Medicine; ATTEND Internal Medicine
PROC: HZ31ZZZ Individual Counseling for Substance Abuse Treatment, Behavioral (ICD-10-PCS; principal; 2018-04-22)
DX: E87.2 Acidosis (principal); F10.239 Alcohol dependence with withdrawal, unspecified; F10.229 Alcohol dependence with intoxication, unspecified; Y90.8 Blood alcohol level of 240 mg/100 ml or more; E86.0 Dehydration; N17.9 Acute kidney failure, unspecified; Z53.21 Procedure and treatment not carried out due to patient leaving prior to being seen by health care provider; M62.82 Rhabdomyolysis; Z63.8 Other specified problems related to primary support group; R79.89 Other specified abnormal findings of blood chemistry; K76.0 Fatty (change of) liver, not elsewhere classified; K80.20 Calculus of gallbladder without cholecystitis without obstruction; F17.210 Nicotine dependence, cigarettes, uncomplicated; R00.0 Tachycardia, unspecified; F32.9 Major depressive disorder, single episode, unspecified; R51 Headache; I10 Essential (primary) hypertension; R15.9 Full incontinence of feces; Z79.899 Other long term (current) drug therapy
CPT/HCPCS: 99406; 93005; 99285; 96361; 96374; 36415 ×3; 82962; 80307; 82803 ×2; 82550 ×3; 83690; 83735 ×2; 84100; 84443; 85025 ×2; 85027; 80076; 80048; 80053 ×3; 81001; 74176; 93010; 36600; G0378 ×2; J3490; J1885; J2060; J3475; J2550; J7030; J7120